=== PATIENT | male | born 1970 | race American Indian/Alaskan Native ===

== ENCOUNTER 2017-04-05 04:03 | Emergency (ER) | payer MEDICAID, OTHER ==
[2017-04-05 04:11] VITALS: BMI 22.7
[2017-04-05 04:14] VITALS: RESP 18; TEMP 97.7; O2SAT 100
[2017-04-05] MEDS ORDERED: Sodium Chloride 0.9% 2,000 ML IV STA (04:15)
[2017-04-05] MEDS ORDERED: Simethicone 80 mg Chewtab PO PRN ×2 (04:15→07:04)
--- NOTE | 2017-04-05 04:38 | ED PDOC ---
Arrival/HPI - General Historian: Patient - History of Present Illness Symptom Onset: Sudden Symptom Course: Unchanged Activities at Onset: Rest Context: Home <Bobby Moeller - Last Filed: 04/05/17 06:34> <Jayden Garcia - Last Filed: 04/05/17 10:08> - General Chief Complaint: Abdominal Pain Time Seen by Provider: 04/05/17 04:09 - History of Present Illness Narrative History of Present Illness (Text): 04/05/17 04:38 A 46 year old male, whose past medical history includes cocaine use in the past , smoker, presents to the emergency department complaining of abdominal pain and diarrhea, since yesterday. Reports about 25 episodes of diarrhea, reports orange color. Patient reports the last thing he ate before diarrhea, was [employer]. Patient notes he feels bloated and cramping pain. Patient denies any vomiting, fever or any other complaints at this time. (Bobby Moeller) Past Medical History - Provider Review Nursing Documentation Reviewed: Yes - Infectious Disease Hx of Infectious Diseases: None - Tetanus Immunization Tetanus Immunization: Up to Date - Past Medical History Past Medical History: No Previous - Cardiac Hx Cardiac Disorders: No - Pulmonary Hx Respiratory Disorders: Yes (1/2 PPD SMOKES CIGARETTES) Hx Pneumonia: Yes - Neurological Hx Neurological Disorder: No - HEENT Hx HEENT Disorder: No - Renal Hx Renal Disorder: No - Endocrine/Metabolic Hx Endocrine Disorders: No - Hematological/Oncological Hx Blood Disorders: No - Integumentary Hx Dermatological Disorder: No - Musculoskeletal/Rheumatological Hx Musculoskeletal Disorders: Yes Hx Falls: Yes Hx Fractures: Yes (DISLOCATED SHOULDER) Other/Comment: CERVICAL RADICULOPATHY,SHOULDER BURSITIS - Gastrointestinal Hx Gastrointestinal Disorders: No - Genitourinary/Gynecological Hx Genitourinary Disorders: No - Psychiatric Hx Psychophysiologic Disorder: No Hx Depression: No Hx Emotional Abuse: No Hx Physical Abuse: No Hx Substance Use: No - Past Surgical History Past Surgical History: No Previous - Anesthesia Hx Anesthesia: No - Suicidal Assessment Feels Threatened In Home Enviroment: No <Bobby Moeller - Last Filed: 04/05/17 06:34> Family/Social History - Physician Review Nursing Documentation Reviewed: Yes Family/Social History: No Known Family HX Smoking Status: Heavy Smoker > 10 Cigarettes Daily Hx Alcohol Use: Yes Frequency of alcohol use: Socially Hx Substance Use: No Hx Substance Use Treatment: No <Bobby Moeller - Last Filed: 04/05/17 06:34> Allergies/Home Meds <Bobby Moeller - Last Filed: 04/05/17 06:34> <Jayden Garcia - Last Filed: 04/05/17 10:08> Allergies/Adverse Reactions: Allergies iodine Allergy (Verified 04/05/17 04:15) RASH shellfish derived Allergy (Verified 04/05/17 04:15) ANAPHYLAXIS Review of Systems - Physician Review All systems were reviewed & negative as marked: Yes - Review of Systems Constitutional: absent: Fevers Gastrointestinal: Abdominal Pain, Diarrhea. absent: Vomiting <Bobby Moeller - Last Filed: 04/05/17 06:34> Physical Exam Vital Signs Reviewed: Yes Temperature: Afebrile Blood Pressure: Normal Pulse: Regular Respiratory Rate: Normal Appearance: Positive for: Well-Appearing, Non-Toxic, Comfortable Pain Distress: None Mental Status: Positive for: Alert and Oriented X 3 - Systems Exam Head: Present: Atraumatic, Normocephalic Pupils: Present: PERRL Extroacular Muscles: Present: EOMI Conjunctiva: Present: Normal Mouth: Present: Moist Mucous Membranes Neck: Present: Normal Range of Motion Respiratory/Chest: Present: Clear to Auscultation, Good Air Exchange. No: Respiratory Distress, Accessory Muscle Use Cardiovascular: Present: Regular Rate and Rhythm, Normal S1, S2. No: Murmurs Abdomen: Present: Distention, Other (hyperactive bowel sounds). No: Tenderness , Peritoneal Signs Back: Present: Normal Inspection Upper Extremity: Present: Normal Inspection. No: Cyanosis, Edema Lower Extremity: Present: Normal Inspection. No: Edema Neurological: Present: GCS=15, CN II-XII Intact, Speech Normal Skin: Present: Warm, Dry, Normal Color. No: Rashes Psychiatric: Present: Alert, Oriented x 3, Normal Insight, Normal Concentration <Bobby Moeller - Last Filed: 04/05/17 06:34> Vital Signs Temp Pulse Resp BP Pulse Ox 04/05/17 04:11 97.7 F 70 18 107/80 100 Medical Decision Making - Lab Interpretations I have reviewed the lab results: Yes <Bobby Moeller - Last Filed: 04/05/17 06:34> <Jayden Garcia - Last Filed: 04/05/17 10:08> ED Course and Treatment: 04/05/17 04:36 Impression: A 46 year old male with abdominal pain and diarrhea. Plan: -- labs -- Urinalysis -- Radiology abdomen -- IV fluids, Toradol, Zofran, Mylicon -- Reassess and disposition Prior Visits: Notes and results from previous visits were reviewed. Patient was last seen in the emergency department on 05/09/15 for evaluation of cough, fever, body aches and chest pain. Progress Notes: 04/05/17 05:30 Radiology abdomen: Distention of small bowel, no air fluid levels, as read by me. Will order CT abd /pelvis. 04/05/17 07:00 Case signed out to Dr. Garcia. Pending CT abdomen/pelvis, labs, reassesment and final disposition. (Bobby Moeller) - Lab Interpretations Lab Results: 04/05/17 04:57 04/05/17 04:57 Lab Results 04/05/17 08:49: Urine Color Yellow, Urine Appearance Sl cloudy, Urine pH 6.0, Ur Specific [place] 1.025, Urine Protein 30 H, Urine Glucose (UA) Negative, Urine Ketones Negative, Urine Blood Moderate H, Urine Nitrate Negative, Urine Bilirubin Negative, Urine Urobilinogen 0.2, Ur Leukocyte Esterase Negative, Urine RBC Pending, Urine WBC Pending 04/05/17 04:57: Sodium 144, Potassium 4.0, Chloride 106, Carbon Dioxide 24, Anion Gap 19, BUN 15, Creatinine 1.1, Est GFR ( Amer) > 60, Est GFR (Non- Af Amer) > 60, Random Glucose 120 H, Calcium 10.1, Total Bilirubin 0.5, AST 44, ALT 40, Alkaline Phosphatase 98, Total Protein 8.6 H, Albumin 4.5, Globulin 4.1 , Albumin/Globulin Ratio 1.1, Lipase 45 04/05/17 04:57: PT 12.1, INR 1.05 04/05/17 04:57: WBC 8.1 D, RBC 5.26, Hgb 15.8, Hct 46.5, MCV 88.4, MCH 30.0, MCHC 34.0, RDW 13.6, Plt Count 278, MPV 10.7, Gran % 62.7, Lymph % (Auto) 24.8, [place] % (Auto) 7.5 H, Eos % (Auto) 4.9, Baso % (Auto) 0.1, Gran # 5.06, Lymph # ( Auto) 2.0, [place] # (Auto) 0.6, Eos # (Auto) 0.4, Baso # (Auto) 0.01 - RAD Interpretation Radiology Orders: 04/05/17 04:15 ABD 2 VIEWS (FLAT/UP OR DECUB) [RAD] Stat 04/05/17 07:39 ABD & PELVIS PO CONTRAST ONLY [CT] Stat - Medication Orders Current Medication Orders: Simethicone (Mylicon Chew Tab) 160 mg PO PCHS PRN PRN Reason: GI distress Last Admin: 04/05/17 05:37 Dose: 160 mg Simethicone (Mylicon Chew Tab) 80 mg PO PCHS PRN PRN Reason: GI distress Discontinued Medications Sodium Chloride (Sodium Chloride 0.9%) 2,000 mls @ 999 mls/hr IV .Q2H1M STA Stop: 04/05/17 06:15 Last Admin: 04/05/17 05:00 Dose: 999 mls/hr eMAR Start Stop Document 04/05/17 05:00 SS (Rec: 04/05/17 05:00 SS [id number]) Intravenous Solution Start Date 04/05/17 Start Time 05:00 End Date 04/05/17 End time 07:00 Total Infusion Time 120 Sodium Chloride (Sodium Chloride 0.9%) 1,000 mls @ 999 mls/hr IV .Q1H1M STA Stop: 04/05/17 06:31 Last Admin: 04/05/17 09:36 Dose: 999 mls/hr eMAR Start Stop Document 04/05/17 09:36 MR (Rec: 04/05/17 09:37 MR [id number]) Intravenous Solution Start Date 04/05/17 Start Time 09:36 End Date 04/05/17 End time 10:36 Total Infusion Time 60 Ketorolac Tromethamine (Toradol) 30 mg IVP STAT STA Stop: 04/05/17 04:16 Last Admin: 04/05/17 04:55 Dose: 30 mg MAR Pain Assessment Document 04/05/17 04:55 SS (Rec: 04/05/17 04:59 SS [id number]) Pain Reassessment Is this a pain reassessment? No Sleep Is patient sleeping during reassessment? No Presence of Pain Presence of Pain Yes Pain Scale Used Pain Scale Used Numeric Location Pain Location Body Site Abdomen Description Description Cramping IVP Administration Document 04/05/17 04:55 SS (Rec: 04/05/17 04:59 SS [id number]) Charges for Administration # of IVP Administrations 1 Ondansetron HCl (Zofran Inj) 8 mg IVP STAT STA Stop: 04/05/17 04:16 Last Admin: 04/05/17 05:00 Dose: 8 mg IVP Administration Document 04/05/17 05:00 SS (Rec: 04/05/17 05:00 SS [id number]) Charges for Administration # of IVP Administrations 1 Pantoprazole Sodium (Protonix Inj) 40 mg IVP STAT STA Stop: 04/05/17 08:05 Last Admin: 04/05/17 08:51 Dose: 40 mg IVP Administration Document 04/05/17 08:51 MR (Rec: 04/05/17 08:51 MR [id number]) Charges for Administration # of IVP Administrations 1 - Scribe Statement The provider has reviewed the documentation as recorded by the Scribe <Bobby Moeller - Last Filed: 04/05/17 06:34> <Jayden Garcia - Last Filed: 04/05/17 10:08> - Scribe Statement Raine Cottrell Provider Scribe Attestation: All medical record entries made by the Scribe were at my direction and personally dictated by me. I have reviewed the chart and agree that the record accurately reflects my personal performance of the history, physical exam, medical decision making, and the department course for this patient. I have also personally directed, reviewed, and agree with the discharge instructions and disposition. (Bobby Moeller) Disposition/Present on Arrival - Present on Arrival History of DVT/PE: No History of Uncontrolled Diabetes: No Urinary Catheter: No History of Decub. Ulcer: No History Surgical Site Infection Following: None <Bobby Moeller - Last Filed: 04/05/17 06:34> - Present on Arrival Any Indicators Present on Arrival: No - Disposition Have Diagnosis and Disposition been Completed?: Yes Disposition Time: 10:07 <Jayden Garcia - Last Filed: 04/05/17 10:08> - Disposition Diagnosis: Abdominal pain Disposition: HOME/ ROUTINE Condition: STABLE Discharge Instructions (ExitCare): Acute Abdominal Pain (ED) Additional Instructions: follo up with specialist. return to er with worsening symptoms or concerns. Prescriptions: Famotidine [Pepcid] 20 mg PO DAILY #20 tab Referrals: PCP,NO [Primary Care Provider] - Follow up with primary Francisco J Alvarado MD [Staff Provider] - Follow up with primary Forms: [employer] (Indonesian)
[2017-04-05 05:08] LABS: BASO # 0.01 K/mm3 (0.0-2.0); BASO % 0.1 % (0.0-3.0); EOS # 0.4 (0.0-0.7); EOS % 4.9 % (1.5-5.0); GRAN # 5.06 (1.4-6.5); GRAN % 62.7 % (50.0-68.0); HEMOGLOBIN 15.8 g/dL (14.0-18.0); LYMPH % 24.8 % (22.0-35.0); MEAN CELL VOLUME 88.4 fl (80.0-105.0); MEAN PLATELET VOLUME 10.7 fl (7.0-11.0); MONO # 0.6 (0.1-0.6); MONO % 7.5 % (1.0-6.0); RBC 5.26 10^6/uL (3.5-6.1); RED CELL DISTRIBUTION WIDTH 13.6 % (11.5-14.5); WHITE BLOOD COUNT 8.1 10^3/ul (4.5-11.0)
[2017-04-05 05:27] LABS: ALB/GLOB RATIO 1.1 (1.1-1.8); ALBUMIN 4.5 g/dL (3.0-4.8); ALT/SGPT 40 U/L (7-56); AST/SGOT 44 U/L (17-59); BLOOD UREA NITROGEN 15 mg/dL (7-21); CALCIUM 10.1 mg/dL (8.4-10.5); GFR AFRICAN-AMERICAN > 60; GFR NON-AFRICAN AMERICAN > 60; INR 1.05 (0.93-1.08); LIPASE 45 U/L (23-300); PROTHROMBIN TIME 12.1 SECONDS (9.4-12.5)
[2017-04-05] MEDS ORDERED: Sodium Chloride 0.9% 1,000 ML IV STA (05:31)
[2017-04-05] MEDS ORDERED: Iohexol 240 (50 ml) ONE (06:22)
[2017-04-05] MEDS ORDERED: Iohexol 350 MG/100 ML VIAL ONE (07:12)
--- NOTE | 2017-04-05 09:52 | CT ---
PROCEDURE: CT Abdomen and Pelvis without intravenous contrast HISTORY: abd pain distention COMPARISON: None. TECHNIQUE: Without contrast.. Contrast Dose: 0 Radiation dose: Total exam DLP = 233.90 mGy-cm. This CT exam was performed using one or more of the following dose reduction techniques: Automated exposure control, adjustment of the mA and/or kV according to patient size, and/or use of iterative reconstruction technique. FINDINGS: LOWER THORAX: Unremarkable. LIVER: Unremarkable. No gross lesion or ductal dilatation. GALLBLADDER AND BILE DUCTS: Unremarkable. PANCREAS: Unremarkable. No gross lesion or ductal dilatation. SPLEEN: Unremarkable. ADRENALS: Unremarkable. No mass. KIDNEYS AND URETERS: Unremarkable. No hydronephrosis. No solid mass. VASCULATURE: Unremarkable. No aortic aneurysm. BOWEL: No evidence of bowel obstruction. There is fluid seen within portions of the colon which may reflect diarrhea. No mural thickening to suggest a colitis. APPENDIX: Not identified. No secondary findings to suggest acute appendicitis. PERITONEUM: Unremarkable. No free fluid. No free air. LYMPH NODES: Unremarkable. No enlarged lymph nodes. BLADDER: Unremarkable. REPRODUCTIVE: Unremarkable prostate BONES: No acute fracture. OTHER FINDINGS: In the inferior right inguinal canal there is an ovoid peripherally calcified structure which is of intermediate attenuation suggesting soft tissue or complex fluid. Uncertain significance. Possible undescended testis though the peripheral calcification is atypical. Please correlate with clinical examination of the scrotum. IMPRESSION: No evidence of bowel obstruction, colitis or enteritis. Incidental ovoid peripherally calcified structure in the inferior right inguinal canal. Rule out undescended testis. Correlate with clinical exam.
[2017-04-05 10:05] LABS: URINE BILIRUBIN NEGATIVE (NEGATIVE); URINE BLOOD MODERATE (NEGATIVE); URINE GLUCOSE (UA) NEGATIVE (NEGATIVE); URINE LEUKOCYTE ESTERASE NEGATIVE Leu/uL (NEGATIVE); URINE NITRATE NEGATIVE (NEGATIVE); URINE PROTEIN 30 mg/dL (<30 mg/dL); URINE UROBILINOGEN 0.2 E.U./dL (<1 E.U./dL)
[2017-04-05 10:06] LABS: URINE APPEARANCE SL CLOUDY (CLEAR); URINE COLOR YELLOW (YELLOW)
--- NOTE | 2017-04-05 10:08 | ED PDOC ---
Physical Exam Vital Signs Temp Pulse Resp BP Pulse Ox 04/05/17 04:11 97.7 F 70 18 107/80 100 Medical Decision Making ED Course and Treatment: 04/05/17 07:00 Case was signed out to me by Dr. Moeller. Patient is a 46 year old male who came in complaining of abdominal pain and diarrhea, since one day ago. Currently pending CT scan. 04/05/17 09:[address]: Creator : Russ Mcdaniel MD FINDINGS: LOWER THORAX: Unremarkable. LIVER:Unremarkable. No gross lesion or ductal dilatation. GALLBLADDER AND BILE DUCTS: Unremarkable. PANCREAS: Unremarkable. No gross lesion or ductal dilatation. SPLEEN: Unremarkable. ADRENALS: Unremarkable. No mass. KIDNEYS AND URETERS: Unremarkable. No hydronephrosis. No solid mass. VASCULATURE: Unremarkable. No aortic aneurysm. BOWEL: No evidence of bowel obstruction. There is fluid seen within portions of the colon which may reflect diarrhea. No mural thickening to suggest a colitis. APPENDIX: Not identified. No secondary findings to suggest acute appendicitis. PERITONEUM: Unremarkable. No free fluid. No free air. LYMPH NODES: Unremarkable. No enlarged lymph nodes. BLADDER:Unremarkable. REPRODUCTIVE: Unremarkable prostate BONES: No acute fracture. OTHER FINDINGS: In the inferior right inguinal canal there is an ovoid peripherally calcified structure which is of intermediate attenuation suggesting soft tissue or complex fluid. Uncertain significance. Possible undescended testis though the peripheral calcification is atypical. Please correlate with clinical examination of the scrotum. IMPRESSION: No evidence of bowel obstruction, colitis or enteritis. Incidental ovoid peripherally calcified structure in the inferior right inguinal canal. Rule out undescended testis. Correlate with clinical exam. 04/05/17 10:00 Patient is resting comfortably, abdomen remains soft, and patient is tolerating PO. He is currently asking for something to eat. On exam patient's evaluation has undescended testicle on left. - Lab Interpretations Lab Results: 04/05/17 04:57 04/05/17 04:57 Lab Results 04/05/17 08:49: Urine Color Yellow, Urine Appearance Sl cloudy, Urine pH 6.0, Ur Specific [place] 1.025, Urine Protein 30 H, Urine Glucose (UA) Negative, Urine Ketones Negative, Urine Blood Moderate H, Urine Nitrate Negative, Urine Bilirubin Negative, Urine Urobilinogen 0.2, Ur Leukocyte Esterase Negative, Urine RBC Pending, Urine WBC Pending 04/05/17 04:57: Sodium 144, Potassium 4.0, Chloride 106, Carbon Dioxide 24, Anion Gap 19, BUN 15, Creatinine 1.1, Est GFR ( Amer) > 60, Est GFR (Non- Af Amer) > 60, Random Glucose 120 H, Calcium 10.1, Total Bilirubin 0.5, AST 44, ALT 40, Alkaline Phosphatase 98, Total Protein 8.6 H, Albumin 4.5, Globulin 4.1 , Albumin/Globulin Ratio 1.1, Lipase 45 04/05/17 04:57: PT 12.1, INR 1.05 04/05/17 04:57: WBC 8.1 D, RBC 5.26, Hgb 15.8, Hct 46.5, MCV 88.4, MCH 30.0, MCHC 34.0, RDW 13.6, Plt Count 278, MPV 10.7, Gran % 62.7, Lymph % (Auto) 24.8, [place] % (Auto) 7.5 H, Eos % (Auto) 4.9, Baso % (Auto) 0.1, Gran # 5.06, Lymph # ( Auto) 2.0, [place] # (Auto) 0.6, Eos # (Auto) 0.4, Baso # (Auto) 0.01 I have reviewed the lab results: Yes - RAD Interpretation Radiology Orders: 04/05/17 04:15 ABD 2 VIEWS (FLAT/UP OR DECUB) [RAD] Stat 04/05/17 07:39 ABD & PELVIS PO CONTRAST ONLY [CT] Stat Physical Damage Appraiser: Radiologist - Medication Orders Current Medication Orders: Simethicone (Mylicon Chew Tab) 160 mg PO PCHS PRN PRN Reason: GI distress Last Admin: 04/05/17 05:37 Dose: 160 mg Simethicone (Mylicon Chew Tab) 80 mg PO PCHS PRN PRN Reason: GI distress Discontinued Medications Sodium Chloride (Sodium Chloride 0.9%) 2,000 mls @ 999 mls/hr IV .Q2H1M STA Stop: 04/05/17 06:15 Last Admin: 04/05/17 05:00 Dose: 999 mls/hr eMAR Start Stop Document 04/05/17 05:00 SS (Rec: 04/05/17 05:00 SS [id number]) Intravenous Solution Start Date 04/05/17 Start Time 05:00 End Date 04/05/17 End time 07:00 Total Infusion Time 120 Sodium Chloride (Sodium Chloride 0.9%) 1,000 mls @ 999 mls/hr IV .Q1H1M STA Stop: 04/05/17 06:31 Last Admin: 04/05/17 09:36 Dose: 999 mls/hr eMAR Start Stop Document 04/05/17 09:36 MR (Rec: 04/05/17 09:37 MR [id number]) Intravenous Solution Start Date 04/05/17 Start Time 09:36 End Date 04/05/17 End time 10:36 Total Infusion Time 60 Ketorolac Tromethamine (Toradol) 30 mg IVP STAT STA Stop: 04/05/17 04:16 Last Admin: 04/05/17 04:55 Dose: 30 mg MAR Pain Assessment Document 04/05/17 04:55 SS (Rec: 04/05/17 04:59 SS [id number]) Pain Reassessment Is this a pain reassessment? No Sleep Is patient sleeping during reassessment? No Presence of Pain Presence of Pain Yes Pain Scale Used Pain Scale Used Numeric Location Pain Location Body Site Abdomen Description Description Cramping IVP Administration Document 04/05/17 04:55 SS (Rec: 04/05/17 04:59 SS [id number]) Charges for Administration # of IVP Administrations 1 Ondansetron HCl (Zofran Inj) 8 mg IVP STAT STA Stop: 04/05/17 04:16 Last Admin: 04/05/17 05:00 Dose: 8 mg IVP Administration Document 04/05/17 05:00 SS (Rec: 04/05/17 05:00 SS [id number]) Charges for Administration # of IVP Administrations 1 Pantoprazole Sodium (Protonix Inj) 40 mg IVP STAT STA Stop: 04/05/17 08:05 Last Admin: 04/05/17 08:51 Dose: 40 mg IVP Administration Document 04/05/17 08:51 MR (Rec: 04/05/17 08:51 MR [id number]) Charges for Administration # of IVP Administrations 1 Disposition/Present on Arrival - Present on Arrival Any Indicators Present on Arrival: No History of DVT/PE: No History of Uncontrolled Diabetes: No Urinary Catheter: No History of Decub. Ulcer: No History Surgical Site Infection Following: None - Disposition Have Diagnosis and Disposition been Completed?: Yes Diagnosis: Abdominal pain Disposition: HOME/ ROUTINE Disposition Time: 10:00 Condition: STABLE Discharge Instructions (ExitCare): Acute Abdominal Pain (ED) Additional Instructions: follo up with specialist. return to er with worsening symptoms or concerns. Prescriptions: Famotidine [Pepcid] 20 mg PO DAILY #20 tab Referrals: Francisco J Alvarado MD [Staff Provider] - Follow up with primary PCP,NO [Primary Care Provider] - Follow up with primary Forms: [employer] (Lao)
[2017-04-05 10:16] LABS: URINE BACTERIA MOD (NEG); URINE RBC 20 - 25 /hpf (0-2)
--- NOTE | 2017-04-05 10:28 | RAD ---
HISTORY: abdominal cramps and diarrhea COMPARISON: No prior. FINDINGS: BOWEL: Normal. No obstruction. No free air. BONES: Normal. OTHER FINDINGS: None. IMPRESSION: No active disease.
[2017-04-05 12:12] VITALS: BP 140/86; PULSE 73
== END 2017-04-05 10:34 | disposition home or self-care (01) ==
LOC: ED 04:03
DX: R10.9 Unspecified abdominal pain (principal)
CPT/HCPCS: 74019; 74176; 80053; 81001; 83690; 85025; 85610; 87045; 87086; 87324; 96361; 96374; 96375; 99284; C9113; J1885; J2405; J7040; Q9966

== ENCOUNTER 2017-04-12 02:52 | Emergency (ER) | payer MEDICAID, OTHER ==
[2017-04-12 02:53] VITALS: BMI 22.7
[2017-04-12 03:09] VITALS: BP 119/70; PULSE 56; RESP 16; TEMP 98.3; O2SAT 100
--- NOTE | 2017-04-12 03:19 | ED PDOC ---
Arrival/HPI - General Time Seen by Provider: 04/12/17 03:00 Historian: Patient - History of Present Illness Narrative History of Present Illness (Text): 04/12/17 03:14 Marco Antonio Santoyo is a 47 year old male, whose past medical history includes substance abuse, who presents to the Emergency department with right lower dental pain, worse with eating/chewing for a few days. Patient states he was diagnosed with an infection in his teeth, was given antibiotics, and was supposed to follow up with his dentist but never did. Patient requesting pain medication. Patient denies any fever, nausea, vomiting, diarrhea, back pain, neck pain, dizziness, or any other complaints. Time/Duration: > week Symptom Onset: Gradual Symptom Course: Worsening Activities at Onset: Light Context: Home Past Medical History - Provider Review Nursing Documentation Reviewed: Yes - Infectious Disease Hx of Infectious Diseases: None - Tetanus Immunization Tetanus Immunization: Up to Date - Past Medical History Past Medical History: No Previous - Cardiac Hx Cardiac Disorders: No - Pulmonary Hx Respiratory Disorders: Yes (1/2 PPD SMOKES CIGARETTES) Hx Pneumonia: Yes - Neurological Hx Neurological Disorder: No - HEENT Hx HEENT Disorder: No - Renal Hx Renal Disorder: No - Endocrine/Metabolic Hx Endocrine Disorders: No - Hematological/Oncological Hx Blood Disorders: No - Integumentary Hx Dermatological Disorder: No - Musculoskeletal/Rheumatological Hx Musculoskeletal Disorders: Yes Hx Falls: Yes Hx Fractures: Yes (DISLOCATED SHOULDER) Other/Comment: CERVICAL RADICULOPATHY,SHOULDER BURSITIS - Gastrointestinal Hx Gastrointestinal Disorders: No - Genitourinary/Gynecological Hx Genitourinary Disorders: No - Psychiatric Hx Psychophysiologic Disorder: No Hx Depression: No Hx Emotional Abuse: No Hx Physical Abuse: No Hx Substance Use: No - Past Surgical History Past Surgical History: No Previous - Anesthesia Hx Anesthesia: No - Suicidal Assessment Feels Threatened In Home Enviroment: No Family/Social History - Physician Review Nursing Documentation Reviewed: Yes Family/Social History: Unknown Family HX Smoking Status: Heavy Smoker > 10 Cigarettes Daily Hx Alcohol Use: Yes Hx Substance Use: No Hx Substance Use Treatment: No Allergies/Home Meds Allergies/Adverse Reactions: Allergies iodine Allergy (Verified 04/12/17 03:08) RASH shellfish derived Allergy (Verified 04/12/17 03:08) ANAPHYLAXIS Review of Systems - Physician Review All systems were reviewed & negative as marked: Yes - Review of Systems Constitutional: Normal Eyes: Normal ENT: Other (+right lower 2nd molar pain) Respiratory: Normal. absent: SOB, Cough Cardiovascular: Normal. absent: Chest Pain, Palpitations Gastrointestinal: Normal. absent: Abdominal Pain, Diarrhea, Nausea, Vomiting Genitourinary Male: Normal. absent: Dysuria, Frequency, Hematuria, Urinary Output Changes Musculoskeletal: Normal. absent: Back Pain, Neck Pain Skin: Normal. absent: Rash Neurological: Normal. absent: Headache Endocrine: Normal Hemo/Lymphatic: Normal Psychiatric: Normal Physical Exam Vital Signs Reviewed: Yes Vital Signs Temp Pulse Resp BP Pulse Ox 04/12/17 03:08 98.3 F 56 L 16 119/70 100 Temperature: Afebrile Blood Pressure: Normal Pulse: Regular Respiratory Rate: Normal Appearance: Positive for: Well-Appearing, Non-Toxic, Comfortable Pain Distress: None Mental Status: Positive for: Alert and Oriented X 3 - Systems Exam Head: Present: Atraumatic, Normocephalic Pupils: Present: PERRL Extroacular Muscles: Present: EOMI Conjunctiva: Present: Normal Mouth: Present: Moist Mucous Membranes, Normal Teeth (right lower 2nd molar roots noted, no tooth visualized, poor dentition), Other Neck: Present: Normal Range of Motion. No: Meningeal Signs, MIDLINE TENDERNESS , Paraspinal Tenderness Respiratory/Chest: Present: Clear to Auscultation, Good Air Exchange. No: Respiratory Distress, Accessory Muscle Use Cardiovascular: Present: Regular Rate and Rhythm, Normal S1, S2. No: Murmurs Abdomen: Present: Normal Bowel Sounds. No: Tenderness, Distention, Peritoneal Signs Back: Present: Normal Inspection Upper Extremity: Present: Normal Inspection. No: Cyanosis, Edema Lower Extremity: Present: Normal Inspection. No: Edema Neurological: Present: GCS=15, CN II-XII Intact, Speech Normal Skin: Present: Warm, Dry, Normal Color. No: Rashes Psychiatric: Present: Alert, Oriented x 3, Normal Insight, Normal Concentration Medical Decision Making ED Course and Treatment: 04/12/17 03:23 Impression: 47 year old male presents to the Emergency department with right lower dental pain. Plan: -- Amoxil -- Toradol -- Reassess and disposition Progress Notes: - Medication Orders Current Medication Orders: Discontinued Medications Amoxicillin (Amoxil 500 Mg Cap) 500 mg PO STAT STA PRN Reason: Protocol Stop: 04/12/17 03:32 Last Admin: 04/12/17 03:41 Dose: 500 mg Ibuprofen (Motrin Tab) 800 mg PO ONCE STA Stop: 04/12/17 03:46 Last Admin: 04/12/17 03:51 Dose: 800 mg Ketorolac Tromethamine (Toradol) 30 mg IM ONCE ONE Stop: 04/12/17 03:31 Last Admin: 04/12/17 03:42 Dose: Not Given Non-Admin Reason: Patient Refused - Scribe Statement The provider has reviewed the documentation as recorded by the [facility] Sandrine Germain All medical record entries made by the Alex were at my direction and personally dictated by me. I have reviewed the chart and agree that the record accurately reflects my personal performance of the history, physical exam, medical decision making, and the department course for this patient. I have also personally directed, reviewed, and agree with the discharge instructions and disposition. Disposition/Present on Arrival - Present on Arrival Any Indicators Present on Arrival: No History of DVT/PE: No History of Uncontrolled Diabetes: No Urinary Catheter: No History Surgical Site Infection Following: None - Disposition Have Diagnosis and Disposition been Completed?: Yes Diagnosis: Pain, dental Disposition: HOME/ ROUTINE Disposition Time: 03:55 Condition: GOOD Discharge Instructions (ExitCare): Toothache (ED) Prescriptions: Amoxicillin 875 mg PO BID #14 tab Ibuprofen [Motrin Tab] 800 mg PO QID #12 tab Forms: [employer] (Mohawk)
== END 2017-04-12 03:53 | disposition home or self-care (01) ==
LOC: ED 02:52
DX: K08.89 Other specified disorders of teeth and supporting structures (principal)

== ENCOUNTER 2017-10-27 11:59 | Emergency (ER) | payer SELFPAY ==
[2017-10-27 11:59] VITALS: BMI 22.7
[2017-10-27 12:27] VITALS: RESP 18
--- NOTE | 2017-10-27 13:10 | ED PDOC ---
Arrival/HPI - General Chief Complaint: Dental Pain Time Seen by Provider: 10/27/17 12:44 Historian: Patient - History of Present Illness Narrative History of Present Illness (Text): 10/27/17 13:03 47yo male with no past medical history who present with toothache and left sided back pain. States he have had toothache intermittently for years now an was afraid of Dentist, but plans to see one soon. States left sided back pain started 2weeks ago. Described pain as constant and sharp, worse with movement. Did not take any medication. Denies trauma, fever,chills, abdominal pain, urinary symptoms, saddle anesthesia, focal weakness, urinary/fecal incontinence , nausea, vomiting. Past Medical History - Provider Review Nursing Documentation Reviewed: Yes - Infectious Disease Hx of Infectious Diseases: None - Tetanus Immunization Tetanus Immunization: Up to Date - Past Medical History Past Medical History: No Previous - Cardiac Hx Cardiac Disorders: No - Pulmonary Hx Respiratory Disorders: Yes (1/2 PPD SMOKES CIGARETTES) Hx Pneumonia: Yes - Neurological Hx Neurological Disorder: No - HEENT Hx HEENT Disorder: No - Renal Hx Renal Disorder: No - Endocrine/Metabolic Hx Endocrine Disorders: No - Hematological/Oncological Hx Blood Disorders: No - Integumentary Hx Dermatological Disorder: No - Musculoskeletal/Rheumatological Hx Musculoskeletal Disorders: Yes Hx Falls: Yes Hx Fractures: Yes (DISLOCATED SHOULDER) Other/Comment: CERVICAL RADICULOPATHY,SHOULDER BURSITIS - Gastrointestinal Hx Gastrointestinal Disorders: No - Genitourinary/Gynecological Hx Genitourinary Disorders: No - Psychiatric Hx Psychophysiologic Disorder: No Hx Depression: No Hx Emotional Abuse: No Hx Physical Abuse: No Hx Substance Use: No - Past Surgical History Past Surgical History: No Previous - Anesthesia Hx Anesthesia: No - Suicidal Assessment Feels Threatened In Home Enviroment: No Family/Social History - Physician Review Nursing Documentation Reviewed: Yes Family/Social History: Unknown Family HX Smoking Status: Heavy Smoker > 10 Cigarettes Daily Hx Alcohol Use: Yes Hx Substance Use: No Hx Substance Use Treatment: No Allergies/Home Meds Allergies/Adverse Reactions: Allergies iodine Allergy (Verified 04/12/17 03:08) RASH shellfish derived Allergy (Verified 04/12/17 03:08) ANAPHYLAXIS Review of Systems - Physician Review All systems were reviewed & negative as marked: Yes - Review of Systems Constitutional: Normal Eyes: Normal ENT: Other (Toothache) Respiratory: Normal Cardiovascular: Normal Gastrointestinal: Normal Genitourinary Male: Normal Musculoskeletal: Back Pain Skin: Normal Neurological: Normal Endocrine: Normal Hemo/Lymphatic: Normal Psychiatric: Normal Physical Exam Vital Signs Reviewed: Yes Vital Signs Temp Pulse Resp BP Pulse Ox 10/27/17 14:27 98.9 F 89 18 133/89 99 10/27/17 14:00 98 F 72 18 133/79 98 10/27/17 12:20 98.0 F 60 18 134/89 99 10/27/17 12:14 98.0 F 60 18 134/89 Temperature: Afebrile Blood Pressure: Normal Pulse: Regular Respiratory Rate: Normal Appearance: Positive for: Well-Appearing, Non-Toxic, Comfortable Pain Distress: None Mental Status: Positive for: Alert and Oriented X 3 - Systems Exam Head: Present: Atraumatic, Normocephalic Pupils: Present: PERRL Extroacular Muscles: Present: EOMI Conjunctiva: Present: Normal Mouth: Present: Moist Mucous Membranes. No: Normal Teeth (Poor dentition in general. Multiple missing tooth noted b/l and up and down premolar and molar with partial avusled molar noted. No gingival swelling. No loose tooth. No overlaying jaw/cheek swelling/erythema.) Neck: Present: Normal Range of Motion Respiratory/Chest: Present: Clear to Auscultation, Good Air Exchange. No: Respiratory Distress, Accessory Muscle Use Cardiovascular: Present: Regular Rate and Rhythm, Normal S1, S2. No: Murmurs Abdomen: No: Tenderness, Distention, Peritoneal Signs Back: Present: Normal Inspection Upper Extremity: Present: Normal Inspection. No: Cyanosis, Edema Lower Extremity: Present: Normal Inspection. No: Edema Neurological: Present: GCS=15, CN II-XII Intact, Speech Normal Skin: Present: Warm, Dry, Normal Color. No: Rashes Psychiatric: Present: Alert, Oriented x 3, Normal Insight, Normal Concentration Medical Decision Making ED Course and Treatment: 10/27/17 18:24 PT presented for stated history. He was ambulatory in emergency department and neurologically intact. He describe MS pain. Pain with movement. LS Xray BONES: Alignment appears satisfactory. No listhesis. No acute displaced fracture identified. DISC SPACES: Unremarkable. OTHER FINDINGS: None. IMPRESSION: No acute displaced fracture or subluxation identified. Result was DW the pt. He was treated with amoxicillin for Dental caries and was referred to a dentist. - RAD Interpretation Radiology Orders: 10/27/17 13:31 LS SPINE WITH OBL > 18 YRS OLD [RAD] Stat - Medication Orders Current Medication Orders: Discontinued Medications Amoxicillin (Amoxil 500 Mg Cap) 500 mg PO STAT STA PRN Reason: Protocol Stop: 10/27/17 12:45 Last Admin: 10/27/17 12:54 Dose: 500 mg Cyclobenzaprine HCl (Flexeril) 10 mg PO STAT STA Stop: 10/27/17 12:45 Last Admin: 10/27/17 12:54 Dose: 10 mg Ibuprofen (Motrin Tab) 600 mg PO STAT STA Stop: 10/27/17 13:00 Last Admin: 10/27/17 13:14 Dose: 600 mg MAR Pain/Vitals Document 10/27/17 13:14 SRE (Rec: 10/27/17 13:14 SRE [id number]) Pain Reassessment Is This A Pain ReAssessment? Yes Sleep Is patient sleeping during reassessment? No Presence of Pain Presence of Pain Yes Location Pain Location Body Site teeth Ketorolac Tromethamine (Toradol) 60 mg IM STAT STA Stop: 10/27/17 12:45 Last Admin: 10/27/17 12:55 Dose: MAR Pain Assessment Document 10/27/17 12:55 SRE (Rec: 10/27/17 12:55 SRE [id number]) Pain Reassessment Is this a pain reassessment? Yes Sleep Is patient sleeping during reassessment? No Presence of Pain Presence of Pain Yes Pain Scale Used Pain Scale Used Numeric Disposition/Present on Arrival - Present on Arrival Any Indicators Present on Arrival: No History of DVT/PE: No History of Uncontrolled Diabetes: No Urinary Catheter: No History of Decub. Ulcer: No History Surgical Site Infection Following: None - Disposition Have Diagnosis and Disposition been Completed?: Yes Diagnosis: Dental caries, Back pain Disposition: HOME/ ROUTINE Disposition Time: 14:15 Patient Plan: Discharge Condition: STABLE Discharge Instructions (ExitCare): Low Back Pain in Adults, Dental Pain (DC) Additional Instructions: Follow up with your Doctor/Dentist Return to emergency department for any new or worsening symptoms Prescriptions: Amoxicillin 500 mg PO TID #21 tablet Cyclobenzaprine [Cyclobenzaprine HCl] 10 mg PO TID #12 tab Ibuprofen [Motrin Tab] 600 mg PO Q6 #20 tab Referrals: Lissa Llanes MD [Medical Doctor] - Follow up with primary Forms: [employer] (Cuban)
--- NOTE | 2017-10-27 14:08 | RAD ---
Date of service: 10/27/2017 PROCEDURE: Radiographs of the Lumbar Spine. HISTORY: back pain COMPARISON: Lumbar spine on CT abdomen and pelvis performed 04/05/17 FINDINGS: BONES: Alignment appears satisfactory. No listhesis. No acute displaced fracture identified. DISC SPACES: Unremarkable. OTHER FINDINGS: None. IMPRESSION: No acute displaced fracture or subluxation identified.
[2017-10-27 14:28] VITALS: BP 133/89; PULSE 89; TEMP 98.9; O2SAT 99
== END 2017-10-27 14:27 | disposition home or self-care (01) ==
LOC: ED 11:59
DX: K02.9 Dental caries, unspecified (principal); M54.9 Dorsalgia, unspecified; F17.210 Nicotine dependence, cigarettes, uncomplicated

== ENCOUNTER 2018-03-12 13:08 | Observation (INO) | payer MEDICAID, OTHER ==
[2018-03-12 13:16] VITALS: BMI 23.5
[2018-03-12] MEDS ORDERED: Sodium Chloride 0.9% 1,000 ML IV STA (13:45)
--- NOTE | 2018-03-12 14:08 | ED PDOC ---
Arrival/HPI - General Chief Complaint: Chest Pain Time Seen by Provider: 03/12/18 13:17 Historian: Patient - History of Present Illness Narrative History of Present Illness (Text): 03/12/18 14:05 A 47 year old male, whose past medical history includes pneumonia, cervical radiculopathy, and shoulder bursitis, presents to the emergency department complaining of chest pain starting last night. Patient reports also experiencing shortness of breath, headache, chills, and back pain as well. States he took 2 pills of Tylenol and has had no relief of symptoms. Patient mentions feeling whole body paralysis for 15 seconds. Patient denies any nausea, vomiting, abdominal pain, or any other complaints at this time. Also, patient admits to using cocaine 3 days ago, and mentions having dental issues recently and has not gone to see a dentist. No PMD Past Medical History - Provider Review Nursing Documentation Reviewed: Yes - Infectious Disease Hx of Infectious Diseases: None - Tetanus Immunization Tetanus Immunization: Up to Date - Past Medical History Past Medical History: No Previous - Cardiac Hx Cardiac Disorders: No - Pulmonary Hx Respiratory Disorders: Yes (1/2 PPD SMOKES CIGARETTES) Hx Pneumonia: Yes - Neurological Hx Neurological Disorder: No - HEENT Hx HEENT Disorder: No - Renal Hx Renal Disorder: No - Endocrine/Metabolic Hx Endocrine Disorders: No - Hematological/Oncological Hx Blood Disorders: No - Integumentary Hx Dermatological Disorder: No - Musculoskeletal/Rheumatological Hx Musculoskeletal Disorders: Yes Hx Falls: Yes Hx Fractures: Yes (DISLOCATED SHOULDER) Other/Comment: CERVICAL RADICULOPATHY,SHOULDER BURSITIS - Gastrointestinal Hx Gastrointestinal Disorders: No - Genitourinary/Gynecological Hx Genitourinary Disorders: No - Psychiatric Hx Psychophysiologic Disorder: No Hx Depression: No Hx Emotional Abuse: No Hx Physical Abuse: No Hx Substance Use: No - Past Surgical History Past Surgical History: No Previous - Anesthesia Hx Anesthesia: No - Suicidal Assessment Feels Threatened In Home Enviroment: No Family/Social History - Physician Review Nursing Documentation Reviewed: Yes Family/Social History: No Known Family HX Smoking Status: Light Smoker < 10 Cigarettes Daily Hx Alcohol Use: Yes Frequency of alcohol use: Socially Hx Substance Use: No Hx Substance Use Treatment: No Allergies/Home Meds Allergies/Adverse Reactions: Allergies iodine Allergy (Verified 03/12/18 13:16) RASH shellfish derived Allergy (Verified 03/12/18 13:16) ANAPHYLAXIS Review of Systems - Physician Review All systems were reviewed & negative as marked: Yes - Review of Systems Constitutional: Night Sweats Respiratory: SOB Cardiovascular: Chest Pain Gastrointestinal: absent: Abdominal Pain, Nausea, Vomiting Musculoskeletal: Back Pain Neurological: Headache Physical Exam Vital Signs Reviewed: Yes Vital Signs Temp Pulse Resp BP Pulse Ox 03/12/18 13:27 98 F 54 L 18 130/89 99 Temperature: Afebrile Blood Pressure: Normal Pulse: Regular Respiratory Rate: Normal Appearance: Positive for: Other (slightly disheveled) Pain Distress: None Mental Status: Positive for: Alert and Oriented X 3 - Systems Exam Head: Present: Atraumatic, Normocephalic Pupils: Present: PERRL Extroacular Muscles: Present: EOMI Conjunctiva: Present: Normal Mouth: Present: Moist Mucous Membranes Neck: Present: Normal Range of Motion Respiratory/Chest: Present: Clear to Auscultation, Good Air Exchange. No: Respiratory Distress, Accessory Muscle Use, Tender to Palpation (no tenderness to palpation to anterior chest wall.) Cardiovascular: Present: Regular Rate and Rhythm, Normal S1, S2. No: Murmurs Abdomen: No: Tenderness, Distention, Peritoneal Signs Back: Present: CVA Tenderness (right-side) Upper Extremity: Present: Normal Inspection, Other (no tracks present to upper extremities.). No: Cyanosis, Edema Lower Extremity: Present: Normal Inspection. No: Edema Neurological: Present: GCS=15, CN II-XII Intact, Speech Normal Skin: Present: Warm, Dry, Normal Color. No: Rashes Psychiatric: Present: Alert, Oriented x 3, Normal Insight, Normal Concentration Medical Decision Making ED Course and Treatment: 03/12/18 14:08 Impression: 47 year old male with chest pain, shortness of breath, headache, chills, and back pain. Differential Diagnoses Includes But Is Not Limited To: --ACS --Substance related angina --PNA Plan: -- Labs --UDS --Toradol --Ativan --CXR -- IV Fluids -- Reassess and disposition Prior Visits: Notes and results from previous visits were reviewed. Patient was last seen here in the emergency department on 10/27/2017 for toothache and left sided back pain. Patient was discharged home. Progress Notes: 03/12/18 16:46 Labs reviewed with troponin negative as well as no evidence of leukocytosis. Discussed case with Dr. Wei(hospitalist) who accepts patient onto hospitalist service. - Lab Interpretations Lab Results: 03/12/18 14:30 03/12/18 14:30 Lab Results 03/12/18 14:30: Urine Opiates Screen Negative, Urine Methadone Screen Negative, Ur Barbiturates Screen Negative, Ur Phencyclidine Scrn Negative, Ur Amphetamines Screen Negative, U Benzodiazepines Scrn Negative, U Oth Cocaine Metabols Positive H, U Cannabinoids Screen Negative 03/12/18 14:30: Sodium 141, Potassium 4.7, Chloride 107, Carbon Dioxide 30, Anion Gap 8 L, BUN 10, Creatinine 0.9, Est GFR ( Amer) > 60, Est GFR (Non-Af Amer) > 60, Random Glucose 87, Calcium 9.2, Magnesium 1.9, Total Bilirubin 0.3, AST 25, ALT 22, Alkaline Phosphatase 82, Troponin I < 0.01, NT-Pro-B Natriuret Pep 69.4, Total Protein 7.5, Albumin 4.1, Globulin 3.4, Albumin/Globulin Ratio 1.2 03/12/18 14:30: WBC 10.2, RBC 4.46, Hgb 13.4 L D, Hct 39.6 L, MCV 88.8, MCH 30.0, MCHC 33.8, RDW 13.7, Plt Count 240, MPV 9.9, Gran % 61.1, Lymph % (Auto) 25.9, [place] % (Auto) 8.5 H, Eos % (Auto) 4.4, Baso % (Auto) 0.1, Gran # 6.24, Lymph # (Auto) 2.6, [place] # (Auto) 0.9 H, Eos # (Auto) 0.5, Baso # (Auto) 0.01 I have reviewed the lab results: Yes - Medication Orders Current Medication Orders: Sodium Chloride (Sodium Chloride 0.9%) 1,000 mls @ 999 mls/hr IV .Q1H1M STA Stop: 03/12/18 14:45 - Scribe Statement The provider has reviewed the documentation as recorded by the Yakovibed Titus Provider Scribe Attestation: All medical record entries made by the Scribe were at my direction and personally dictated by me. I have reviewed the chart and agree that the record accurately reflects my personal performance of the history, physical exam, medical decision making, and the department course for this patient. I have also personally directed, reviewed, and agree with the discharge instructions and disposition. Disposition/Present on Arrival - Present on Arrival Any Indicators Present on Arrival: No History of DVT/PE: No History of Uncontrolled Diabetes: No Urinary Catheter: No History of Decub. Ulcer: No History Surgical Site Infection Following: None - Disposition Have Diagnosis and Disposition been Completed?: Yes Diagnosis: Chest pain, Cocaine abuse Disposition: HOSPITALIZED Discharge Instructions (ExitCare): Chest Pain (ED) Forms: [employer] (Maltese)
[2018-03-12 14:51] LABS: BASO # 0.01 K/mm3 (0.0-2.0); BASO % 0.1 % (0.0-3.0); EOS # 0.5 (0.0-0.7); EOS % 4.4 % (1.5-5.0); GRAN # 6.24 (1.4-6.5); GRAN % 61.1 % (50.0-68.0); HEMOGLOBIN 13.4 g/dL (14.0-18.0); LYMPH # 2.6 (1.2-3.4); LYMPH % 25.9 % (22.0-35.0); MEAN CELL VOLUME 88.8 fl (80.0-105.0); MEAN CORPUSCULAR HGB CONC 33.8 g/dl (31.0-37.0); MEAN PLATELET VOLUME 9.9 fl (7.0-11.0); MONO # 0.9 (0.1-0.6); MONO % 8.5 % (1.0-6.0); RBC 4.46 10^6/uL (3.5-6.1); RED CELL DISTRIBUTION WIDTH 13.7 % (11.5-14.5); WHITE BLOOD COUNT 10.2 10^3/uL (4.5-11.0)
[2018-03-12 15:02] LABS: ALB/GLOB RATIO 1.2 (1.1-1.8); ALBUMIN 4.1 g/dL (3.0-4.8); ALT/SGPT 22 U/L (7-56); AST/SGOT 25 U/L (17-59); BLOOD UREA NITROGEN 10 mg/dL (7-21); CALCIUM 9.2 mg/dL (8.4-10.5); GFR NON-AFRICAN AMERICAN > 60
[2018-03-12 15:14] LABS: B-TYPE NATRIURETIC PEPTIDE 69.4 pg/mL (0-450); TROPONIN I < 0.01 ng/mL
[2018-03-12 15:17] LABS: BARBITURATES, UR NEGATIVE (NEGATIVE); BENZODIAZEPINES, UR NEGATIVE (NEGATIVE); OPIATES, UR NEGATIVE (NEGATIVE); PHENCYCLIDINE, UR NEGATIVE (NEGATIVE)
--- NOTE | 2018-03-12 18:18 | CP.PCM.HP ---
<Trevin Fuller - Last Filed: 03/12/18 19:09> History of Present Illness - History of Present Illness History of Present Illness: Trevin Fuller, PGY-1 Medicine H&P Note for Dr. Oliveira CC: L sided chest pain Pt is a 47 yo M with pmhx of cervical radiculopathy and shoulder bursitis who presents to the ED for complaints of chest pain. Pt states that his chest pain started last night @ 11:30 pm while he was eating dinner and watching TV. He states that currently the pain is a 6/10 in intensity with radiation to the R side of the chest and shoulder. He describes the pain as being sharp and he reports taking tylenol for the pain which did not alleviate the pain at all. Pt states that the pain worsens with activity. Pt also reported some paralysis that occured today for less than a minute which also brought upon an episode of the pain. Pt reports that the pain is episodic and comes and goes without any noticeable pattern. Pt also admits to cocaine use every other day and states that he snorts 2 grams when he uses. Pt states that his last cocaine use was 2 days ago. Pt admits that a similar episode of pain like this about 2 years ago which was thought to be musculoskeletal in nature. Pt at this time denies fevers, chills, weakness, numbness, tingling, lightheadedness, SOB, cough, palpitations, lower extremity swelling, abd pain, n/v, c/d, or dysuria. Pt does admit to L sided chest pain with radiation to R side of chest and to R shoulder. Pt also admits to toothpain. He states that he has been neglecting dental care and now knows he has cavities that are causing him pain. Pmhx: cervical radiculopathy and shoulder bursitis Pshx: Denies Meds: Denies All: Shellfish - Hives Social: 1/2ppd smoker x 20 yrs, occasional drinking, last drink more than 2 wks ago, Cocaine use q2days, uses 2 grams Fam: Non-contributory Present on Admission - Present on Admission Any Indicators Present on Admission: No Review of Systems - Review of Systems Review of Systems: 12 Point ROS reviewed and negative except for noted in HPI above. Past Patient History - Infectious Disease Hx of Infectious Diseases: None - Tetanus Immunizations Tetanus Immunization: Up to Date - Past Social History Smoking Status: Light Smoker < 10 Cigarettes Daily - CARDIAC Hx Cardiac Disorders: No - PULMONARY Hx Respiratory Disorders: Yes (1/2 PPD SMOKES CIGARETTES) Hx Pneumonia: Yes - NEUROLOGICAL Hx Neurological Disorder: No - HEENT Hx HEENT Problems: No - RENAL Hx Chronic Kidney Disease: No - ENDOCRINE/METABOLIC Hx Endocrine Disorders: No - HEMATOLOGICAL/ONCOLOGICAL Hx Blood Disorders: No - INTEGUMENTARY Hx Dermatological Problems: No - MUSCULOSKELETAL/RHEUMATOLOGICAL Hx Musculoskeletal Disorders: Yes Hx Falls: Yes Hx Fractures: Yes (DISLOCATED SHOULDER) Other/Comment: CERVICAL RADICULOPATHY,SHOULDER BURSITIS - GASTROINTESTINAL Hx Gastrointestinal Disorders: No - GENITOURINARY/GYNECOLOGICAL Hx Genitourinary Disorders: No - PSYCHIATRIC Hx Psychophysiologic Disorder: No Hx Depression: No Hx Emotional Abuse: No Hx Physical Abuse: No Hx Substance Use: No - SURGICAL HISTORY Hx Surgeries: No - ANESTHESIA Hx Anesthesia: No Meds Allergies/Adverse Reactions: Allergies Allergy/AdvReac Type Severity Reaction Status Date / Time iodine Allergy RASH Verified 03/12/18 13:16 shellfish derived Allergy ANAPHYLAXIS Verified 03/12/18 13:16 Physical Exam - Constitutional Appears: Non-toxic, No Acute Distress - Head Exam Head Exam: ATRAUMATIC, NORMAL INSPECTION, NORMOCEPHALIC - Eye Exam Eye Exam: EOMI, Normal appearance, PERRL - Respiratory Exam Respiratory Exam: Chest Wall Tenderness (tenderness upon palpation particularly on L side of chest), Clear to Auscultation Bilateral, NORMAL BREATHING PATTERN. absent: Rales, Rhonchi, Wheezes, Respiratory Distress, Stridor - Cardiovascular Exam Cardiovascular Exam: RRR, +S1, +S2. absent: Gallop, Rubs - GI/Abdominal Exam GI & Abdominal Exam: Normal Bowel Sounds, Soft. absent: Distended, Firm, Guarding, Tenderness - Extremities Exam Extremities exam: Positive for: normal capillary refill, normal inspection, pedal pulses present. Negative for: calf tenderness, pedal edema - Back Exam Back exam: NORMAL INSPECTION, tenderness (present on the L side of the back medial to the scapula). absent: CVA tenderness (L), CVA tenderness (R) - Neurological Exam Neurological exam: Alert, Oriented x3 - Psychiatric Exam Psychiatric exam: Normal Affect, Normal Mood - Skin Skin Exam: Dry, Normal Color, Warm Results - Vital Signs Recent Vital Signs: Last Vital Signs Temp 97.8 F 03/12/18 17:56 Pulse 88 03/12/18 17:56 Resp 18 03/12/18 17:56 BP 136/92 H 03/12/18 17:56 Pulse Ox 99 03/12/18 17:56 - Labs Result Diagrams: 03/12/18 14:30 03/12/18 14:30 Labs: Laboratory Results - last 24 hr 03/12/18 03/12/18 03/12/18 14:30 14:30 14:30 WBC 10.2 RBC 4.46 Hgb 13.4 L D Hct 39.6 L MCV 88.8 MCH 30.0 MCHC 33.8 RDW 13.7 Plt Count 240 MPV 9.9 Gran % 61.1 Lymph % (Auto) 25.9 [place] % (Auto) 8.5 H Eos % (Auto) 4.4 Baso % (Auto) 0.1 Gran # 6.24 Lymph # (Auto) 2.6 [place] # (Auto) 0.9 H Eos # (Auto) 0.5 Baso # (Auto) 0.01 Sodium 141 Potassium 4.7 Chloride 107 Carbon Dioxide 30 Anion Gap 8 L BUN 10 Creatinine 0.9 Est GFR ( Amer) > 60 Est GFR (Non-Af Amer) > 60 Random Glucose 87 Calcium 9.2 Magnesium 1.9 Total Bilirubin 0.3 AST 25 ALT 22 Alkaline Phosphatase 82 Troponin I < 0.01 NT-Pro-B Natriuret Pep 69.4 Total Protein 7.5 Albumin 4.1 Globulin 3.4 Albumin/Globulin Ratio 1.2 Urine Opiates Screen Negative Urine Methadone Screen Negative Ur Barbiturates Screen Negative Ur Phencyclidine Scrn Negative Ur Amphetamines Screen Negative U Benzodiazepines Scrn Negative U Oth Cocaine Metabols Positive H U Cannabinoids Screen Negative Assessment & Plan - Assessment and Plan (Free Text) Assessment: Pt is a 47 yo M with pmhx of cervical radiculopathy and shoulder bursitis who presents to the ED for complaints of chest pain. Inital Trops are negative. EKG shows NSR @ 62 bpm with sinus arrhythmia. Pts chest pain is reproducible upon palpation. Plan: 1) Chest pain R/o ACS: - Pt admits to 2g of cocaine use 2 days ago, currently without tachycardia or HTN - No cardiac Hx - Risk factors include: Cigarette smoke - Pt educated on smoking and cocaine cessation - Initial trop <.01, trend trops - EKG - NSR with sinus arrythmia - ASA 81mg PO QD - Lipid panel - Cardio consult - Dr. Shell - TSH PPX: DVT: SCDs HHD Case seen and discussed with Dr. Tee Fuller, PGY-1 <Bernadette Oliveira R - Last Filed: 03/13/18 07:07> Results - Vital Signs Recent Vital Signs: Last Vital Signs Temp 98.5 F 03/13/18 06:22 Pulse 69 03/13/18 06:22 Resp 19 03/13/18 06:22 BP 144/97 H 03/13/18 06:22 Pulse Ox 96 03/13/18 06:22 - Labs Result Diagrams: 03/13/18 02:45 03/13/18 02:45 Labs: Laboratory Results - last 24 hr 03/12/18 03/12/18 03/12/18 14:30 14:30 14:30 WBC 10.2 RBC 4.46 Hgb 13.4 L D Hct 39.6 L MCV 88.8 MCH 30.0 MCHC 33.8 RDW 13.7 Plt Count 240 MPV 9.9 Gran % 61.1 Lymph % (Auto) 25.9 [place] % (Auto) 8.5 H Eos % (Auto) 4.4 Baso % (Auto) 0.1 Gran # 6.24 Lymph # (Auto) 2.6 [place] # (Auto) 0.9 H Eos # (Auto) 0.5 Baso # (Auto) 0.01 Sodium 141 Potassium 4.7 Chloride 107 Carbon Dioxide 30 Anion Gap 8 L BUN 10 Creatinine 0.9 Est GFR ( Amer) > 60 Est GFR (Non-Af Amer) > 60 Random Glucose 87 Calcium 9.2 Magnesium 1.9 Total Bilirubin 0.3 AST 25 ALT 22 Alkaline Phosphatase 82 Troponin I < 0.01 NT-Pro-B Natriuret Pep 69.4 Total Protein 7.5 Albumin 4.1 Globulin 3.4 Albumin/Globulin Ratio 1.2 Triglycerides Cholesterol LDL Cholesterol Direct HDL Cholesterol TSH 3rd Generation Urine Opiates Screen Negative Urine Methadone Screen Negative Ur Barbiturates Screen Negative Ur Phencyclidine Scrn Negative Ur Amphetamines Screen Negative U Benzodiazepines Scrn Negative U Oth Cocaine Metabols Positive H U Cannabinoids Screen Negative Alcohol, Quantitative 03/12/18 03/12/18 03/13/18 17:57 20:00 02:45 WBC RBC Hgb Hct MCV MCH MCHC RDW Plt Count MPV Gran % Lymph % (Auto) [place] % (Auto) Eos % (Auto) Baso % (Auto) Gran # Lymph # (Auto) [place] # (Auto) Eos # (Auto) Baso # (Auto) Sodium 138 Potassium 4.1 Chloride 108 H Carbon Dioxide 28 Anion Gap 6 L BUN 11 Creatinine 0.8 Est GFR ( Amer) > 60 Est GFR (Non-Af Amer) > 60 Random Glucose 93 Calcium 8.9 Magnesium Total Bilirubin 0.3 AST 28 ALT 23 Alkaline Phosphatase 79 Troponin I < 0.01 < 0.01 NT-Pro-B Natriuret Pep Total Protein 6.9 Albumin 3.6 Globulin 3.2 Albumin/Globulin Ratio 1.1 Triglycerides 54 Cholesterol 150 LDL Cholesterol Direct 75 HDL Cholesterol 56 TSH 3rd Generation Urine Opiates Screen Urine Methadone Screen Ur Barbiturates Screen Ur Phencyclidine Scrn Ur Amphetamines Screen U Benzodiazepines Scrn U Oth Cocaine Metabols U Cannabinoids Screen Alcohol, Quantitative < 10 03/13/18 03/13/18 02:45 02:45 WBC 7.8 D RBC 4.15 Hgb 12.2 L Hct 36.0 L MCV 86.7 MCH 29.4 MCHC 33.9 RDW 13.5 Plt Count 222 MPV 10.0 Gran % 58.4 Lymph % (Auto) 27.1 [place] % (Auto) 10.5 H Eos % (Auto) 3.9 Baso % (Auto) 0.1 Gran # 4.54 Lymph # (Auto) 2.1 [place] # (Auto) 0.8 H Eos # (Auto) 0.3 Baso # (Auto) 0.01 Sodium Potassium Chloride Carbon Dioxide Anion Gap BUN Creatinine Est GFR ( Amer) Est GFR (Non-Af Amer) Random Glucose Calcium Magnesium Total Bilirubin AST ALT Alkaline Phosphatase Troponin I NT-Pro-B Natriuret Pep Total Protein Albumin Globulin Albumin/Globulin Ratio Triglycerides Cholesterol LDL Cholesterol Direct HDL Cholesterol TSH 3rd Generation 1.86 Urine Opiates Screen Urine Methadone Screen Ur Barbiturates Screen Ur Phencyclidine Scrn Ur Amphetamines Screen U Benzodiazepines Scrn U Oth Cocaine Metabols U Cannabinoids Screen Alcohol, Quantitative Attending/Attestation - Attestation I have personally seen and examined this patient.: Yes I have fully participated in the care of the patient.: Yes I have reviewed all pertinent clinical information: Yes Notes (Text): Patient seen and examined by me with resident at 4:50PM on 03/12/18. Case including HPI, physical exam, and assessment and plan discussed with resident. Agree with above with following additions/corrections. Patient is a 47-year-old male with past medical history significant for cocaine abuse, alcohol use, tobacco abuse, chest pain, and tooth pain presents to the [facility] room with left-sided chest pain. Patient states the pain started last night while having dinner around 11:30 PM. Patient states that the pain is sharp and its on the left side above his left breast and near his armpit. Patient states that the pain is intermittent and it comes and goes. He tried Tylenol with no relief. Patient states it radiates to his left scapula area. Patient states he uses cocaine every other day and has been using for 26 years. He uses about 2 grams every time he uses. Patient denies any associated nausea or diaphoresis. States he has some chills. He states he also feels short of breath with the pain. Patient is also complaining of chronic teeth pain. Patient states he has not followed up with a dentist "because Im neglecting myself." Patient also complains of a headache. No dizziness or lightheadedness. No change in vision. No fevers or chills. No dysuria. No diarrhea or constipation. No nausea, vomiting, or abdominal pain. 12 point review of systems reviewed by me. Please see above HPI, all other systems negative. Past Medical History: Cocaine abuse, alcohol use, tobacco abuse, chest pain, and tooth pain Past Surgical History: Reviewed and denied Allergies: Shellfish, reaction: hives Medications at home: patient denies taking any medications Family History: Mother is alive and healthy. Father passed at a young age from gun shot wound. Social history. Lives with . Not working. Using cocaine for 26 years. Snorts 2 grams every other day. Smokes 5-6 cigarattes a day for 20 years. Occasional alcohol use. Physical exam: General: Awake and alert lying in bed in no acute distress HEENT: Normocephalic, atraumatic. Extraocular muscles intact, pupils equal and reactive, no scleral icterus. Oropharynx is pink and moist. No pharyngeal eryth anastacia or exudate appreciated. Very poor dentition: no erythema, edema, or drainage noted, appears to have multiple cavities and broken teeth. Ears and nose externally unremarkable. Neck is supple. Cardiovascular: Normal rhythm. Normal S1 and S2. No murmurs, rubs, or gallops appreciated Pulmonary: Normal respiratory effort. No rhonchi, rales, or wheezing appreciated. Gastrointestinal: Soft, nondistended. Nontender. Positive bowel sounds all 4 quadrants. No guarding. Musculoskeletal: Moves all extremities. No calf tenderness. No edema appreciated. Positive anterior left sided chest wall tenderness. Positive left scapular tenderness. Central nervous system: AAOx3. CN 2-12 grossly intact. Dermatologic: Skin warm and dry. Assessment and plan: Patient is a 47-year-old male with past medical history significant for cocaine abuse, alcohol use, tobacco abuse, chest pain, and tooth pain presents to the emergency room with left-sided chest pain. 1. Chest pain. Likely musculoskeletal. Pain reproducible. Rule ACS. Follow up serial troponins. Follow-up lipid panel. We'll place on aspirin. Cardiology consulted, follow-up recommendations. No beta juni secondary to cocaine use. 2. Tooth pain. Discussed importance of following up with a dentist at length. Patient with very poor dentition. 3. Cocaine abuse. Discussed cessation at length. 4. Tobacco abuse. Discussed cessation at length. 5. Patient is a full code Case was discussed in detail with the patient regarding current diagnosis and treatment plan. All questions answered.
[2018-03-13 02:57] LABS: BASO # 0.01 K/mm3 (0.0-2.0); BASO % 0.1 % (0.0-3.0); EOS # 0.3 (0.0-0.7); EOS % 3.9 % (1.5-5.0); GRAN # 4.54 (1.4-6.5); GRAN % 58.4 % (50.0-68.0); HEMOGLOBIN 12.2 g/dL (14.0-18.0); LYMPH # 2.1 (1.2-3.4); LYMPH % 27.1 % (22.0-35.0); MEAN CELL VOLUME 86.7 fl (80.0-105.0); MEAN CORPUSCULAR HEMOGLOBIN 29.4 pg (25.0-35.0); MEAN CORPUSCULAR HGB CONC 33.9 g/dl (31.0-37.0); MONO # 0.8 (0.1-0.6); MONO % 10.5 % (1.0-6.0); RBC 4.15 10^6/uL (3.5-6.1); RED CELL DISTRIBUTION WIDTH 13.5 % (11.5-14.5); WHITE BLOOD COUNT 7.8 10^3/uL (4.5-11.0)
[2018-03-13 03:54] LABS: ALB/GLOB RATIO 1.1 (1.1-1.8); ALBUMIN 3.6 g/dL (3.0-4.8); ALT/SGPT 23 U/L (7-56); AST/SGOT 28 U/L (17-59); BLOOD UREA NITROGEN 11 mg/dL (7-21); CALCIUM 8.9 mg/dL (8.4-10.5); GFR NON-AFRICAN AMERICAN > 60; HDL CHOLESTEROL 56 mg/dL (29-60)
[2018-03-13 04:08] LABS: LDL CHOLESTEROL 75 mg/dL (0-129)
[2018-03-13 04:09] LABS: TROPONIN I < 0.01 ng/mL
--- NOTE | 2018-03-13 08:35 | CARD ---
APPROVED REPORT Date of service: 03/12/2018 EKG Measurement Heart [id number] <Conclusion> Normal sinus rhythm with sinus arrhythmia Normal ECG
--- NOTE | 2018-03-13 09:50 | CARD ---
APPROVED REPORT Date of service: 03/12/2018 EKG Measurement Heart [id number] <Conclusion> Marked sinus bradycardia with sinus arrhythmia
--- NOTE | 2018-03-13 13:18 | CARD ---
APPROVED REPORT Date of service: 03/13/2018 EKG Measurement Heart [id number] <Conclusion> Sinus bradycardia with sinus arrhythmia Otherwise normal ECG
--- NOTE | 2018-03-13 15:10 | CON ---
DATE: 03/13/2018 CARDIOLOGY CONSULTATION HISTORY OF PRESENT ILLNESS: The patient is a 47-year-old male who presents with pleuritic chest pain as well as total body aches. He apparently admitted to be using cocaine. No previous cardiac history is noted. MEDICATIONS AT HOME: He denies medications at home other than ibuprofen. He denies diabetes mellitus. SOCIAL HISTORY: He is an active smoker. REVIEW OF SYSTEMS: A 14-point review of systems is reviewed in detail. No anginal symptoms were elicited. PHYSICAL EXAMINATION: VITAL SIGNS: Blood pressure 144/97, heart rates in the 60s. NECK: Negative JVD. LUNGS: Without rales. HEART: S1, S2. EXTREMITIES: Without edema. LABORATORY DATA: EKG shows no acute changes. Laboratories were positive for cocaine and its metabolites in the urine. Troponins are negative x3. IMPRESSION: 1. Atypical chest pain with diffuse body aches. 2. No evidence for acute coronary syndrome. 3. Normal EKG and negative troponins. 4. Nicotine addiction. 5. Cocaine abuse. Given these findings, I have discussed with the patient about many of the symptoms maybe drug related. Given that there is no evidence for acute coronary syndrome, the patient should be referred for drug dependency program. Russ Shell MD
[2018-03-13 16:33] VITALS: BP 112/70; PULSE 62; RESP 18; TEMP 98.6; O2SAT 98
--- NOTE | 2018-03-13 17:32 | CP.PCM.DIS ---
Provider - Provider Date of Admission: 03/12/18 16:45 Attending physician: Maty Horn MD Consults: 03/12/18 17:53 Cardiology Consult Routine Comment: Consulting Provider: Russ Shell Consulting Physician: Russ Shell Reason for Consult: chest pain; cocaine use; Time Spent in preparation of Discharge (in minutes): 40 Diagnosis - Discharge Diagnosis (1) Chest pain Status: Acute Priority: High (2) Cocaine use Status: Chronic Priority: High Hospital Course - Lab Results Lab Results: Most Recent Lab Values WBC 7.8 10^3/uL (4.5-11.0) D 03/13/18 02:45 RBC 4.15 10^6/uL (3.5-6.1) 03/13/18 02:45 Hgb 12.2 g/dL (14.0-18.0) L 03/13/18 02:45 Hct 36.0 % (42.0-52.0) L 03/13/18 02:45 MCV 86.7 fl (80.0-105.0) 03/13/18 02:45 MCH 29.4 pg (25.0-35.0) 03/13/18 02:45 MCHC 33.9 g/dl (31.0-37.0) 03/13/18 02:45 RDW 13.5 % (11.5-14.5) 03/13/18 02:45 Plt Count 222 10^3/uL (120.0-450.0) 03/13/18 02:45 MPV 10.0 fl (7.0-11.0) 03/13/18 02:45 Gran % 58.4 % (50.0-68.0) 03/13/18 02:45 Lymph % (Auto) 27.1 % (22.0-35.0) 03/13/18 02:45 [place] % (Auto) 10.5 % (1.0-6.0) H 03/13/18 02:45 Eos % (Auto) 3.9 % (1.5-5.0) 03/13/18 02:45 Baso % (Auto) 0.1 % (0.0-3.0) 03/13/18 02:45 Gran # 4.54 (1.4-6.5) 03/13/18 02:45 Lymph # (Auto) 2.1 (1.2-3.4) 03/13/18 02:45 [place] # (Auto) 0.8 (0.1-0.6) H 03/13/18 02:45 Eos # (Auto) 0.3 (0.0-0.7) 03/13/18 02:45 Baso # (Auto) 0.01 K/mm3 (0.0-2.0) 03/13/18 02:45 Sodium 138 mmol/L (132-148) 03/13/18 02:45 Potassium 4.1 mmol/L (3.6-5.0) 03/13/18 02:45 Chloride 108 mmol/L (98-107) H 03/13/18 02:45 Carbon Dioxide 28 mmol/L (21-33) 03/13/18 02:45 Anion Gap 6 (10-20) L 03/13/18 02:45 BUN 11 mg/dL (7-21) 03/13/18 02:45 Creatinine 0.8 mg/dl (0.8-1.5) 03/13/18 02:45 Est GFR ( Amer) > 60 03/13/18 02:45 Est GFR (Non-Af Amer) > 60 03/13/18 02:45 Random Glucose 93 mg/dL (70-110) 03/13/18 02:45 Calcium 8.9 mg/dL (8.4-10.5) 03/13/18 02:45 Magnesium 1.9 mg/dL (1.7-2.2) 03/12/18 14:30 Total Bilirubin 0.3 mg/dL (0.2-1.3) 03/13/18 02:45 AST 28 U/L (17-59) 03/13/18 02:45 ALT 23 U/L (7-56) 03/13/18 02:45 Alkaline Phosphatase 79 U/L (38-126) 03/13/18 02:45 Troponin I < 0.01 ng/mL 03/13/18 02:45 NT-Pro-B Natriuret Pep 69.4 pg/mL (0-450) 03/12/18 14:30 Total Protein 6.9 g/dL (5.8-8.3) 03/13/18 02:45 Albumin 3.6 g/dL (3.0-4.8) 03/13/18 02:45 Globulin 3.2 gm/dL 03/13/18 02:45 Albumin/Globulin Ratio 1.1 (1.1-1.8) 03/13/18 02:45 Triglycerides 54 mg/dL (35-160) 03/13/18 02:45 Cholesterol 150 mg/dL (130-200) 03/13/18 02:45 LDL Cholesterol Direct 75 mg/dL (0-129) 03/13/18 02:45 HDL Cholesterol 56 mg/dL (29-60) 03/13/18 02:45 TSH 3rd Generation 1.86 mIU/mL (0.46-4.68) 03/13/18 02:45 Urine Opiates Screen Negative (NEGATIVE) 03/12/18 14:30 Urine Methadone Screen Negative (NEGATIVE) 03/12/18 14:30 Ur Barbiturates Screen Negative (NEGATIVE) 03/12/18 14:30 Ur Phencyclidine Scrn Negative (NEGATIVE) 03/12/18 14:30 Ur Amphetamines Screen Negative (NEGATIVE) 03/12/18 14:30 U Benzodiazepines Scrn Negative (NEGATIVE) 03/12/18 14:30 U Oth Cocaine Metabols Positive (NEGATIVE) H 03/12/18 14:30 U Cannabinoids Screen Negative (NEGATIVE) 03/12/18 14:30 Alcohol, Quantitative < 10 mg/dL (0-10) 03/12/18 17:57 - Hospital Course Hospital Course: Upon Arrival Pt is a 47 yo male with PMH of cervical radiculopathy and shoulder bursitis who presents to the ED for complaints of chest pain. Pt states that his chest pain started the night prior to arrival at 11:30 pm while he was eating dinner and watching TV. He described the pain as being sharp and he reports taking tylenol for the pain which did not alleviate the pain at all. Pt states that the pain worsens with activity. Pt also reported some paralysis that occured today for less than a minute which also brought upon an episode of the pain. Pt reports that the pain is episodic and comes and goes without any noticeable pattern. Pt also admits to cocaine use every other day and states that he snorts 2 grams when he uses. Pt states that his last cocaine use was 2 days ago. Pt admits that a similar episode of pain like this about 2 years ago which was thought to be musculoskeletal in nature. Hospitalization Pt was treated for chest pain and rule out ACS. Pt has risk factors which include smoking. Trops were negative x3. Pt was given ASA. Cardio, Dr Shell, was consulted and cleared pt for discharge after seeing the pt. UDS was positive for cocaine. Discharge Pt advised to please follow up at the [facility]. Appointment is 03/21/18 at 3pm. Given referrals for several local dental clinics. Please make an appointment with a dental clinic of your choice to undergo a dental evaluation. Advised to stop using cocaine, there are many detrimental health affects to abusing this drug. If symptoms return, please go to the nearest emergency department as soon as possible - Date & Time of H&P Date of H&P: 03/13/18 Time of H&P: 06:00 Discharge Exam - Head Exam Head Exam: ATRAUMATIC, NORMAL INSPECTION, NORMOCEPHALIC - Eye Exam Eye Exam: EOMI - ENT Exam ENT Exam: Mucous Membranes Moist - Respiratory Exam Respiratory Exam: NORMAL BREATHING PATTERN, UNREMARKABLE. absent: Accessory Muscle Use, Respiratory Distress - Cardiovascular Exam Cardiovascular Exam: RRR, +S1, +S2. absent: Diastolic murmur, Systolic Murmur - GI/Abdominal Exam GI & Abdominal Exam: Normal Bowel Sounds, Soft, Unremarkable - Extremities Exam Extremities exam: full ROM - Neurological Exam Neurological exam: Alert, Oriented x3 - Psychiatric Exam Psychiatric exam: Normal Affect, Normal Mood - Skin Skin Exam: Dry, Intact, Warm Discharge Plan - Follow Up Plan Condition: GOOD Disposition: HOME/ ROUTINE Instructions: Cocaine Use Disorder, Chest Pain (DC), Drug Abuse and Drug Addiction (DC), Quitting Smoking Additional Instructions: 1. Please follow up at the [facility] at [facility]. Your appointment is 03/21/18 at 3pm. Please show up at least 30 minutes early to complete registration. Please bring a photo ID and all papers you were given for your discharge. 2. You have been given referrals for several local dental clinics. Please make an appointment with a dental clinic of your choice to undergo a dental evaluation. 3. You are advised to stop using cocaine, there are many detrimental health affects to abusing this drug 4. If your symptoms return, please go to the nearest emergency department as soon as possible [facility], [facility] [Other] (Dentist Clinic) [facility] [Outside] - 03/21/18 3:00 pm
== END 2018-03-13 20:01 | disposition home or self-care (01) ==
LOC: ED 13:08 → ERH 16:45 → 3RNO 23:49
PROVIDERS: ADMIT Internal Medicine; ATTEND Internal Medicine
DX: R07.89 Other chest pain (principal); F17.210 Nicotine dependence, cigarettes, uncomplicated; F14.10 Cocaine abuse, uncomplicated; M75.50 Bursitis of unspecified shoulder; M54.12 Radiculopathy, cervical region; Z87.01 Personal history of pneumonia (recurrent)
CPT/HCPCS: 36415; 80053; 80061; 83735; 83880; 84443; 84484; 85025; 93005; 96374; 96375; 99285; G0378; G0480; J1885; J2060; J7030

== ENCOUNTER 2018-06-14 00:54 | Emergency (ER) | payer MEDICAID, OTHER ==
[2018-06-14 00:55] VITALS: BMI 23.5
== END 2018-06-14 01:55 | disposition left against medical advice (07) ==
LOC: ED 00:54
DX: Z02.89 Encounter for other administrative examinations (principal); R07.9 Chest pain, unspecified

== ENCOUNTER 2018-06-19 13:30 | Emergency (ER) | payer MEDICAID, OTHER ==
[2018-06-19 13:30] VITALS: BMI 23.5
--- NOTE | 2018-06-19 13:56 | ED PDOC ---
Arrival/HPI - General Time Seen by Provider: 06/19/18 13:54 Historian: Patient - History of Present Illness Narrative History of Present Illness (Text): 06/19/18 13:55 48 year old M with pmh of pneumonia, cervical radiculopathy, and shoulder bursitis presents complaining of intermittent, non radiating chest pain x2days and evaluation for possible cocaine OD. Patient endorses substance abuse, snorting cocaine 2 hours presenting to hospital and fears an overdose. Patient denies any suicidal ideation. Patient denies any fevers, chills, headache, dizziness, shortness of breath, dyspnea on exertion, cough, abdominal pain, nausea, vomiting, diarrhea, back pain, neck pain, or any other complaint. Time/Duration: 1-3 hours Symptom Onset: Sudden Symptom Course: Unchanged Activities at Onset: Light Past Medical History - Provider Review Nursing Documentation Reviewed: Yes - Infectious Disease Hx of Infectious Diseases: None - Tetanus Immunization Tetanus Immunization: Up to Date - Past Medical History Past Medical History: No Previous - Cardiac Hx Cardiac Disorders: No - Pulmonary Hx Respiratory Disorders: Yes (1/2 PPD SMOKES CIGARETTES) Hx Pneumonia: Yes - Neurological Hx Neurological Disorder: No - HEENT Hx HEENT Disorder: No - Renal Hx Renal Disorder: No - Endocrine/Metabolic Hx Endocrine Disorders: No - Hematological/Oncological Hx Blood Disorders: No - Integumentary Hx Dermatological Disorder: No - Musculoskeletal/Rheumatological Hx Musculoskeletal Disorders: Yes Hx Falls: Yes Hx Fractures: Yes (DISLOCATED SHOULDER) Other/Comment: CERVICAL RADICULOPATHY,SHOULDER BURSITIS - Gastrointestinal Hx Gastrointestinal Disorders: No - Genitourinary/Gynecological Hx Genitourinary Disorders: No - Psychiatric Hx Psychophysiologic Disorder: No Hx Depression: No Hx Emotional Abuse: No Hx Physical Abuse: No Hx Substance Use: No - Past Surgical History Past Surgical History: No Previous - Anesthesia Hx Anesthesia: No - Suicidal Assessment Feels Threatened In Home Enviroment: No Family/Social History - Physician Review Nursing Documentation Reviewed: Yes Family/Social History: Unknown Family HX Smoking Status: Light Smoker < 10 Cigarettes Daily Hx Alcohol Use: Yes Hx Substance Use: No Hx Substance Use Treatment: No Allergies/Home Meds Allergies/Adverse Reactions: Allergies iodine Allergy (Verified 03/12/18 13:16) RASH shellfish derived Allergy (Verified 03/12/18 13:16) ANAPHYLAXIS Review of Systems - Physician Review All systems were reviewed & negative as marked: Yes - Review of Systems Constitutional: absent: Fevers ENT: absent: Sore Throat, Rhinorrhea, Epistaxis Respiratory: absent: SOB, Cough Cardiovascular: Chest Pain Gastrointestinal: absent: Abdominal Pain, Diarrhea, Nausea, Vomiting Genitourinary Male: absent: Dysuria Musculoskeletal: absent: Arthralgias, Back Pain, Neck Pain, Myalgias Skin: absent: Cellulitis Neurological: absent: Headache, Dizziness Physical Exam Vital Signs Reviewed: Yes Temperature: Afebrile Blood Pressure: Normal Pulse: Regular Respiratory Rate: Normal Appearance: Positive for: Well-Appearing, Comfortable Pain Distress: None Mental Status: No: Alert and Oriented X 3 (A&0x2) - Systems Exam Head: Present: Atraumatic, Normocephalic Pupils: Present: PERRL Extroacular Muscles: Present: EOMI Conjunctiva: Present: Normal Mouth: Present: Moist Mucous Membranes Neck: Present: Normal Range of Motion Respiratory/Chest: Present: Clear to Auscultation, Good Air Exchange. No: Re spiratory Distress, Accessory Muscle Use Cardiovascular: Present: Regular Rate and Rhythm, Normal S1, S2. No: Murmurs Abdomen: No: Tenderness, Distention, Peritoneal Signs Back: Present: Normal Inspection Upper Extremity: Present: Normal Inspection. No: Cyanosis, Edema Lower Extremity: Present: Normal Inspection. No: Edema Neurological: Present: GCS=15, CN II-XII Intact, Speech Normal Skin: Present: Warm, Dry, Normal Color. No: Rashes Psychiatric: Present: Alert, Normal Insight, Normal Concentration. No: Oriented x 3 (0x2), Suicidal Ideation, Homicidal Ideation Medical Decision Making ED Course and Treatment: 06/19/18 13:55 Impression: 48 year old M presents complaining of intermittent, non radiating chest pain x2days and evaluation for possible cocaine OD. Patient endorses substance abuse, snorting cocaine 2 hours presenting to hospital and fears an overdose. Patient denies any suicidal ideation. Patient appeared drowsy. Plan: -- Labs -- EKG -- Aspirin -- Reassess and disposition Prior Visits: Notes and results from previous visits were reviewed. Patient was last seen in the emergency department on Progress Notes: EKG: Ordered, reviewed, and independently interpreted the EKG. Rate: 79 BPM Rhythm: NSR Interpretation: No ST-segment elevations or depressions, no T-wave inversions, normal intervals. 06/19/18 16:00 Chest X-ray -- No focal consolidation identified 06/19/18 16:011 According to nursing staff, patient refuses aspirin 06/19/18 19:33 Patient has been sleeping majority of stay in the emergency room. His chest pain has resolved. Will discharge. - Scribe Statement The provider has reviewed the documentation as recorded by the Alex Browne All medical record entries made by the Scribed were at my direction and personally dictated by me. I have reviewed the chart and agree that the record accurately reflects my personal performance of the history, physical exam, medical decision making, and the department course for this patient. I have also personally directed, reviewed, and agree with the discharge instructions and disposition. Disposition/Present on Arrival - Present on Arrival Any Indicators Present on Arrival: No History of DVT/PE: No History of Uncontrolled Diabetes: No Urinary Catheter: No History Surgical Site Infection Following: None - Disposition Have Diagnosis and Disposition been Completed?: Yes Diagnosis: Chest pain, Substance abuse Disposition: HOME/ ROUTINE Disposition Time: 19:26 Patient Plan: Discharge Discharge Instructions (ExitCare): Chest Pain (DC), Drug Abuse and Drug Addiction (DC) Additional Instructions: DAIN ENGLISH, thank you for letting us take care of you today. Your provider was Livier Sal MD and you were treated for chest pain / left arm numbness. The emergency medical care you received today was directed at your acute symptoms. If you were prescribed any medication, please fill it and take as directed. It may take several days for your symptoms to resolve. Return to the Emergency Department if your symptoms worsen, do not improve, or if you have any other problems. Please contact your doctor or call one of the physicians/clinics you have been referred to that are listed on the Patient Visit Information form that is included in your discharge packet. Bring any paperwork you were given at discharge with you along with any medications you are taking to your follow up visit. Our treatment cannot replace ongoing medical care by a primary care provider outside of the emergency department. Thank you for allowing the [facility] hospital team to be part of your care today. Referrals: Lissa Llanes MD [Medical Doctor] - Follow up with primary [facility] [Outside] - [place] up [place] [facility] [place] [facility] [place] - Follow up with primary
[2018-06-19 14:00] VITALS: RESP 18; TEMP 98
--- NOTE | 2018-06-19 16:06 | RAD ---
HISTORY: cp COMPARISON: Chest x-ray performed 05/09/15 TECHNIQUE: Chest, one view. FINDINGS: LUNGS: No focal consolidation. Please note that chest x-ray has limited sensitivity for the detection of pulmonary masses. PLEURA: No significant pleural effusion identified. No definite pneumothorax . CARDIOVASCULAR: Heart size appears within normal limits. Faint atherosclerotic calcification of the aorta. OSSEOUS STRUCTURES: No acute osseous abnormality identified. VISUALIZED UPPER ABDOMEN: Unremarkable. OTHER FINDINGS: None. IMPRESSION: No focal consolidation identified.
[2018-06-19 16:07] LABS: BASO # 0.01 K/mm3 (0.0-2.0); BASO % 0.1 % (0.0-3.0); EOS # 0.4 (0.0-0.7); EOS % 4.1 % (1.5-5.0); LYMPH # 2.8 (1.2-3.4); MEAN CELL VOLUME 87.4 fl (80.0-105.0); MEAN CORPUSCULAR HEMOGLOBIN 29.3 pg (25.0-35.0); MEAN CORPUSCULAR HGB CONC 33.5 g/dl (31.0-37.0); MEAN PLATELET VOLUME 9.8 fl (7.0-11.0); MONO # 0.8 (0.1-0.6); RBC 4.44 10^6/uL (3.5-6.1); RED CELL DISTRIBUTION WIDTH 13.6 % (11.5-14.5); WHITE BLOOD COUNT 8.7 10^3/uL (4.5-11.0)
[2018-06-19 16:38] LABS: ALB/GLOB RATIO 1.2 (1.1-1.8); ALBUMIN 4.1 g/dL (3.0-4.8); ALT/SGPT 14 U/L (7-56); AST/SGOT 30 U/L (17-59); BLOOD UREA NITROGEN 19 mg/dL (7-21); GFR NON-AFRICAN AMERICAN > 60
[2018-06-19 17:06] LABS: TROPONIN I < 0.01 ng/mL
--- NOTE | 2018-06-19 18:33 | CARD ---
APPROVED REPORT Date of service: 06/19/2018 EKG Measurement Heart [id number] <Conclusion> Normal sinus rhythm Normal ECG
[2018-06-19 21:07] VITALS: BP 143/78; PULSE 80; O2SAT 99
== END 2018-06-19 22:10 | disposition home or self-care (01) ==
LOC: ED 13:30
DX: R07.9 Chest pain, unspecified (principal); F19.10 Other psychoactive substance abuse, uncomplicated; F17.210 Nicotine dependence, cigarettes, uncomplicated
CPT/HCPCS: 71045; 80053; 82550; 83615; 83735; 84484; 85025; 93005; 99283; G0480